=== PATIENT | female | born 1990 | race American Indian/Alaskan Native ===

== ENCOUNTER 2018-02-13 01:54 | Emergency (ER) | payer MEDICAID ==
[2018-02-13 02:30] LABS: Basophils % (Auto) 0.4 % (0.0-1.8); Eosinophils # (Auto) 0.1 K/mm3 (0.0-0.4); Eosinophils % (Auto) 0.7 % (0.0-4.3); Hematocrit 33.3 % (30.3-42.9); Hemoglobin 11.5 gm/dl (10.1-14.3); Lymphocytes # (Auto) 2.8 K/mm3 (1.2-5.4); Lymphocytes % (Auto) 26.4 % (13.4-35.0); Mean Corpuscular HGB Conc 35 % (30-34); Mean Corpuscular Hemoglobin 31 pg (28-32); Mean Corpuscular Volume 91 fl (79-97); Monocytes # (Auto) 0.8 K/mm3 (0.0-0.8); Monocytes % (Auto) 7.4 % (0.0-7.3); Platelet Count 243 K/mm3 (140-440); Red Blood Count 3.68 M/mm3 (3.65-5.03); Red Cell Distribution Width 14.3 % (13.2-15.2)
[2018-02-13 03:24] LABS: Bacteria,Urine 4+ /HPF (Negative); Bilirubin,Urine NEG (Negative); Blood,Urine LG (Negative); Color,Urine Red (Yellow); Mucus,Urine FEW /HPF; Urobilinogen,Urine < 2.0 mg/dL (<2.0)
[2018-02-13 03:36] LABS: RBC,Urine > 182.0 /HPF (0.0-6.0); WBC,Urine > 182.0 /HPF (0.0-6.0)
--- NOTE | 2018-02-13 04:45 | Ultrasound Report ---
FINAL REPORT EXAM: US OB TRANSVAGINAL HISTORY: vag bleed COMPARISONS: None. FINDINGS: Transvaginal grayscale, color Doppler and M-mode first-trimester ultrasound Single living intrauterine is present with recorded cardiac activity of 161 beats per minute and crown-rump length of approximately 5.3 cm. Estimated gestational age is 12 weeks 0 days corresponding to delivery date of 08/28/2018, which is concordant with last menstrual period dating. Soft tissue prominence along the posterior aspect of the gestational sac measures 7.6 x 5 x 4 cm and shows scant internal vascularity in on color Doppler evaluation. The cervix appears closed and measures at least 3.5 cm in length. No free fluid in the pelvis. The ovaries demonstrate normal echotexture and measure 3.1 x 2 x 2.8 cm on the right and 2.8 x 1.9 x 2.7 cm on the left. IMPRESSION: Single living intrauterine with estimated gestational age of 12 weeks 0 days. Soft tissue prominence along the posterior aspect of the gestational sac may represent the developing placenta, fibroid, or evolving perigestational hemorrhage. Gestational trophoblastic disease is thought less likely. Consider short interval follow-up. The cervix appears closed.
--- NOTE | 2018-02-13 04:46 | Ultrasound Report ---
FINAL REPORT EXAM: US OB < = 14 WEEKS FETUS HISTORY: vag bleed COMPARISONS: None. FINDINGS: Transabdominal grayscale, color Doppler and M-mode first-trimester ultrasound Single living intrauterine is present with recorded cardiac activity of 161 beats per minute and crown-rump length of approximately 5.3 cm. Estimated gestational age is 12 weeks 0 days corresponding to delivery date of 08/28/2018, which is concordant with last menstrual period dating. Soft tissue prominence along the posterior aspect of the gestational sac shows scant internal vascularity in on color Doppler evaluation. The cervix appears closed and measures at least 3.5 cm in length. No free fluid in the pelvis. The ovaries demonstrate normal echotexture and measure 3.1 x 2 x 2.8 cm on the right and 2.8 x 1.9 x 2.7 cm on the left. IMPRESSION: Single living intrauterine with estimated gestational age of 12 weeks 0 days. Soft tissue prominence along the posterior aspect of the gestational sac may represent the developing placenta, fibroid, or evolving perigestational hemorrhage. Gestational trophoblastic disease is thought less likely. Consider short interval follow-up. The cervix appears closed.
[2018-02-13 06:42] VITALS: BP 144/55
--- NOTE | 2018-02-13 08:30 | Emergency Department Report ---
ED General Adult HPI - General Chief complaint: Vaginal Bleeding Stated complaint: VAGINAL BLEEDING Time Seen by Provider: 02/13/18 07:50 Source: patient Mode of arrival: Ambulatory Limitations: No Limitations - History of Present Illness Initial comments: Patient presents to emergency department for acute onset of vaginal bleeding that started around 1 AM this morning. Patient states she is approximately 11 weeks . Patient denies any abdominal pain. Patient also denies any vaginal discharge. -: Sudden Severity scale (0 -10): 0 Improves with: none Worsens with: none Treatments Prior to Arrival: none - Related Data Allergies Allergy/AdvReac Type Severity Reaction Status Date / Time shellfish derived Allergy Itching Verified 02/13/18 02:15 ED Review of Systems ROS: Stated complaint: VAGINAL BLEEDING Other details as noted in HPI Comment: All other systems reviewed and negative Constitutional: denies: chills, fever Eyes: denies: eye pain, eye discharge, vision change ENT: denies: ear pain, throat pain Respiratory: denies: cough, shortness of breath, wheezing Cardiovascular: denies: chest pain, palpitations Endocrine: no symptoms reported Gastrointestinal: denies: abdominal pain, nausea, diarrhea Genitourinary: other (vaginal bleeding). denies: urgency, dysuria, discharge Musculoskeletal: denies: back pain, joint swelling, arthralgia Skin: denies: rash, lesions Neurological: denies: headache, weakness, paresthesias Psychiatric: denies: anxiety, depression Hematological/Lymphatic: denies: easy bleeding, easy bruising ED Past Medical Hx - Past Medical History Previous Medical History?: Yes - Surgical History Past Surgical History?: No - Social History Smoking Status: Never Smoker Substance Use Type: None ED Physical Exam - General Limitations: No Limitations General appearance: alert, in no apparent distress - Head Head exam: Present: atraumatic, normocephalic - Eye Eye exam: Present: normal appearance, PERRL, EOMI. Absent: scleral icterus - ENT ENT exam: Present: mucous membranes moist - Neck Neck exam: Present: normal inspection - Respiratory Respiratory exam: Present: normal lung sounds bilaterally. Absent: respiratory distress - Cardiovascular Cardiovascular Exam: Present: regular rate, normal rhythm. Absent: systolic murmur, diastolic murmur, rubs, gallop - GI/Abdominal GI/Abdominal exam: Present: soft, normal bowel sounds. Absent: distended, tenderness - Rectal Rectal exam: Present: deferred - External exam: Present: other (exam deferred) Speculum exam: Present: other (exam deferred) Bi-manual exam: Present: other (exam deferred) - Extremities Exam Extremities exam: Present: normal inspection - Back Exam Back exam: Present: normal inspection - Neurological Exam Neurological exam: Present: alert, oriented X3 - Psychiatric Psychiatric exam: Present: normal affect, normal mood - Skin Skin exam: Present: warm, dry, intact, normal color. Absent: rash ED Course Vital Signs 02/13/18 02/13/18 02/13/18 01:53 06:42 06:43 Temperature 98.2 F 98.4 F Pulse Rate 99 H 88 Respiratory 18 18 Rate Blood Pressure 127/77 Blood Pressure 144/55 [Right] O2 Sat by Pulse 98 100 100 Oximetry ED Medical Decision Making - Lab Data Result diagrams: 02/13/18 02:19 - Medical Decision Making Discussed results with the patient Patient encouraged to keep her [facility] appointment on Monday Critical care attestation.: If time is entered above; I have spent that time in minutes in the direct care of this critically ill patient, excluding procedure time. ED Disposition Clinical Impression: Miscarriage, threatened, early Disposition: - TO HOME OR SELFCARE Is pt being admited?: No Does the pt Need Aspirin: No Condition: Stable Instructions: Threatened Miscarriage (ED) Referrals: PRIMARY CARE, [Primary Care Provider] - 3-5 Days NICOLA PARKER MD [Staff Physician] - 3-5 Days
== END 2018-02-13 09:10 | disposition home or self-care (01) ==
LOC: ED 01:54
DX: O20.0 Threatened abortion (principal); Z91.013 Allergy to seafood; Z3A.11 11 weeks gestation of pregnancy
CPT/HCPCS: 36415; 76801; 76817; 81001; 84702; 85025; 86850; 86900; 86901

== ENCOUNTER 2020-12-02 11:49 | Day surgery (SDC) | payer MEDICAID ==
--- NOTE | 2020-12-01 16:38 | History and Physical Report ---
History of Present Illness Date of examination: 12/02/20 History of present illness: 30 yo desires sterilization and will present on 12/02 for Lap BTL. No other issues. Past History Past Medical History: no pertinent history Past Surgical History: no surgical history Social history: smoking - Obstetrical History : 7 Hx # Term Pregnancies: 6 Spontaneous Abortions: 1 Number of Living Children: 6 Medications and Allergies Allergies Allergy/AdvReac Type Severity Reaction Status Date / Time shellfish derived Allergy Itching Verified 11/27/20 13:51 Home Medications Medication Instructions Recorded Confirmed Last Taken Type Norgestimate-Ethinyl Estradiol 1 each PO DAILY 11/27/20 11/27/20 Unknown History [Tri-Sprintec Tablet] Active Meds: Active Medications Acetaminophen (Acetaminophen 500 Mg Tab) 1,000 mg PO PREOP AMAURI Stop: 12/02/20 23:00 Celecoxib (Celecoxib 200 Mg Cap) 200 mg PO PREOP NR Stop: 12/02/20 23:00 Gabapentin (Gabapentin 300 Mg Cap) 300 mg PO PREOP NR Stop: 12/02/20 23:00 Lactated Ringer's (Lactated Ringers) 1,000 mls @ 100 mls/hr IV DIRECT AMAURI Stop: 12/02/20 23:59 Midazolam HCl (Midazolam 2 Mg/2 Ml Inj) 2 mg IV PREOP NR Stop: 12/02/20 23:00 Review of Systems All systems: negative (execpt HPI) - Vital Signs Vital signs: per EMR charting - Physical Exam Cardiovascular: Regular rate Lungs: Positive: Clear to auscultation, Normal air movement Abdomen: Positive: normal appearance, soft (nontender) Genitourinary (Female): Positive: other (deferred to the OR) Results All other labs normal. Assessment and Plan - Patient Problems (1) Sterilization Current Visit: No Status: Acute Plan to address problem: PT is for Lap BTL on 12/02. PT fully counseled including the approximately 12/999 risk of failure. PT understands and accepts that. Patient fully consented for the surgery. Risks, benefits, and alternatives were all discussed with the patient including risk of bleeding, infection, and potential for injury. Patient understands and accepts these risks. Patient agrees to proceed with surgery. All questions were answered.
[~2020-12-02 11:49] MED LIST: ACETAMINOPHEN 500 MG TAB PO SCH; CELECOXIB 200 MG CAP PO NR; GABAPENTIN 300 MG CAP PO NR; LACTATED RINGERS 1,000 ML IV SCH; MIDAZOLAM 2 MG/2 ML INJ IV NR
--- NOTE | 2020-12-02 12:42 | Anesthesia Consultation ---
Anesthesia Consult and Med Hx Date of service: 12/02/20 - Airway Anesthetic Teeth Evaluation: Good ROM Head & Neck: Adequate Mental/Hyoid Distance: Adequate Mallampati Class: Class III Intubation Access Assessment: Possibly Difficult - Pulmonary Exam CTA: Yes - Cardiac Exam Cardiac Exam: RRR - Pre-Operative Health Status ASA Pre-Surgery Classification: ASA2 Proposed Anesthetic Plan: General - Pulmonary Hx Smoking: Yes (<1/2PPD) Hx Respiratory Symptoms: No Hx Sleep Apnea: No - Cardiovascular System Hx Hypertension: No (under observation for HTN but no rx at this time) - Central Nervous System CVA: No - Endocrine Hx Renal Disease: No Hx Liver Disease: No Hx Insulin Dependent Diabetes: No Hx Non-Insulin Dependent Diabetes: No Hx Thyroid Disease: No - Additional Comments Anesthesia Medical History Comments: No hx anesthetic complications.
--- NOTE | 2020-12-02 12:43 | Anesthesia Day of Surgery ---
Anesthesia Day of Surgery - Day of Surgery Patient Examined: Yes Patient H&P Reviewed: Yes Patient is NPO: Yes
[2020-12-02] MEDS ORDERED: propofoL 200 MG/20 ML VIAL IV ONE (12:56)
[2020-12-02] MEDS ORDERED: ROCURONIUM 50 MG/5 ML INJ IV ONE (12:56)
[2020-12-02] MEDS ORDERED: LIDOCAINE MPF (2%) 20 MG/1 ML VIAL 5 ML ONE (12:56)
[2020-12-02] MEDS ORDERED: fentaNYL 100 MCG/2 ML INJ ONE ×2 (12:56→13:38)
[2020-12-02] MEDS ORDERED: BUPIVACAINE/PF (0.5%) 5 MG/1 ML 30 ML VIAL INFILTRATI ONE ×3 (12:57→13:50)
[2020-12-02] MEDS ORDERED: ONDANSETRON 4 MG/2 ML INJ IV PRN (13:00)
[2020-12-02] MEDS ORDERED: ONDANSETRON 4 MG/2 ML INJ ONE (13:26)
[2020-12-02] MEDS ORDERED: dexAMETHasone 20 MG/5 ML VIAL ONE (13:26)
[2020-12-02] MEDS ORDERED: SODIUM CHLORIDE 0.9% IRR 1,500 ML BOTTLE IR ONE (13:57)
[2020-12-02] MEDS ORDERED: SUGAMMADEX SODIUM 200 MG/2 ML VIAL IV ONE (14:00)
--- NOTE | 2020-12-02 14:14 | Post Operative Note ---
Date of procedure: 12/02/20 Pre-op diagnosis: Sterilization Post-op diagnosis: same Findings: Normal uterus, tubes, ovaries. General abdominal/pelvic survey within normal limits. No anomalies noted. Procedure: Indication: 30-year-old -0-1-6 who is here for her scheduled laparoscopic bilateral tubal ligation Procedure: Laparoscopic bilateral tubal ligation. Patient taken the operating room and prepped and draped in usual fashion. Attention was first turned vaginally where single-tooth tenaculum was applied to the anterior lip of the cervix and an acorn uterine manipulator was placed. Attention was now turned abdominally where a 5 mm incision was made in the umbilicus. Veres needle then placed in the abdominal cavity. The abdomen was appropriately insufflated with CO2 gas. Veres needle removed and the 5 mm trocar was placed in abdominal cavity. Placement confirmed with the camera. Attention was turned suprapubically where an 8 mm incision was made and the 8 mm trocar was placed suprapubically in the midline under direct visualization. Trocar placed successfully and without difficulty. Attention was first turned to assess in the abdomen and pelvis. Findings noted above. Attention turned to the tubal ligation where a Filshie clip was applied to each tube. Each clip encompassed the full width of the tube on each side and good hemostasis was noted afterwards on both sides. At this point the abdomen was fully desuffla faisal. Trochars were removed. Trocar sites were closed with 4-0 Vicryl in a subcuticular fashion followed by Marcaine. The acorn uterine manipulator and single-tooth tenaculum were removed. Procedure concluded at this point. Patient tolerated the procedure well. All instrument lap counts were correct. Patient taken to the recovery room in stable condition. Anesthesia: GETA Surgeon: ORQUIDEA ALCANTARA Estimated blood loss: minimal Pathology: none Condition: stable Disposition: PACU
--- NOTE | 2020-12-02 14:18 | Short Stay Summary ---
Short Stay Documentation Date of service: 12/02/20 Narrative H&P: Patient had her scheduled laparoscopic bilateral tubal ligation with Filshie clips on 12/02/2020. Surgery was uncomplicated. Please see H&P and operative report for details. Patient sent home in stable condition with instructions to follow-up in the office 2 weeks postop. - History H&P: dictated Social history: smoking - Allergies and Medications Current Medications: Allergies shellfish derived Allergy (Verified 12/02/20 12:58) Itching Home Medications Medication Instructions Recorded Confirmed Last Taken Type Norgestimate-Ethinyl Estradiol 1 each PO DAILY 11/27/20 12/02/20 11/30/20 08:00 History [Tri-Sprintec Tablet] Ibuprofen [Motrin 800 MG tab] 800 mg PO Q8HR PRN #30 tablet 12/02/20 Unknown Rx oxyCODONE /ACETAMINOPHEN [Percocet 1 tab PO Q4HR PRN #20 tab 12/02/20 Unknown Rx 5/325] Active Medications Acetaminophen (Acetaminophen 500 Mg Tab) 1,000 mg PO PREOP AMAURI Stop: 12/02/20 23:00 Last Admin: 12/02/20 12:25 Dose: 1,000 mg Documented by: Celecoxib (Celecoxib 200 Mg Cap) 200 mg PO PREOP NR Stop: 12/02/20 23:00 Last Admin: 12/02/20 12:25 Dose: 200 mg Documented by: Gabapentin (Gabapentin 300 Mg Cap) 300 mg PO PREOP NR Stop: 12/02/20 23:00 Last Admin: 12/02/20 12:25 Dose: 300 mg Documented by: Hydromorphone HCl (Hydromorphone 1 Mg/1 Ml Inj) 0.5 mg IV Q10MIN PRN PRN Reason: Pain , Severe (7-10) Stop: 12/02/20 19:00 Lactated Ringer's (Lactated Ringers) 1,000 mls @ 100 mls/hr IV DIRECT AMAURI Stop: 12/02/20 23:59 Last Admin: 12/02/20 12:30 Dose: 100 mls/hr Documented by: Midazolam HCl (Midazolam 2 Mg/2 Ml Inj) 2 mg IV PREOP NR Stop: 12/02/20 23:00 Last Admin: 12/02/20 12:45 Dose: 2 mg Documented by: Ondansetron HCl (Ondansetron 4 Mg/2 Ml Inj) 4 mg IV ONCE PRN PRN Reason: Nausea And Vomiting Stop: 12/02/20 19:00 - Disposition Condition at discharge: Stable Disposition: DC-01 TO HOME OR SELFCARE - Discharge Diagnoses (1) Sterilization Status: Acute Short Stay Discharge Plan Follow up with: ORQUIDEA ALCANTARA MD [Staff Physician] - 14 Days Prescriptions: Ibuprofen [Motrin 800 MG tab] 800 mg PO Q8HR PRN #30 tablet PRN Reason: Pain , Severe (7-10) oxyCODONE /ACETAMINOPHEN [Percocet 5/325] 1 tab PO Q4HR PRN #20 tab PRN Reason: Pain , Severe (7-10)
[2020-12-02] MEDS ORDERED: KETOROLAC 30 MG/1 ML INJ ONE (14:27)
[2020-12-02] MEDS: HYDROmorphone 1 MG/1 ML INJ IV PRN ×2 (14:30→14:42)
[2020-12-02] MEDS ORDERED: KETOROLAC 30 MG/1 ML INJ IV NR (15:00)
[2020-12-02] MEDS ORDERED: oxyCODONE /ACETAMINOPHEN 5-325MG TAB PO PRN (15:12)
[2020-12-02 15:26] VITALS: BP 137/97
--- NOTE | 2020-12-02 15:46 | Post Anesthesia Evaluation ---
- Post Anesthesia Evaluation Patient Participated: Yes Airway Patent: Yes Stable Respiratory Function: Yes Nausea/Vomiting: No Temp > 96.8F: Yes Pain Manageable: Yes Adequeate Hydration: Yes Anesthesia Complications: No
== END 2020-12-02 15:45 | disposition home or self-care (01) ==
LOC: OR 11:49
PROVIDERS: ATTEND Obstetrics & Gynecology
DX: Z30.2 Encounter for sterilization (principal); K21.9 Gastro-esophageal reflux disease without esophagitis; G43.909 Migraine, unspecified, not intractable, without status migrainosus; F17.210 Nicotine dependence, cigarettes, uncomplicated; Z91.013 Allergy to seafood; Z79.899 Other long term (current) drug therapy; Z72.89 Other problems related to lifestyle; Z98.890 Other specified postprocedural states
CPT/HCPCS: 58671; 81025; J1100; J1170; J1885; J2250; J2405; J2704; J3010; J7120